=== PATIENT | female | born 1975 | race Caucasian/White ===

== ENCOUNTER 2022-01-23 18:03 | Emergency (ER) | payer OTHER, MEDICARE, MEDICAID ==
[2022-01-23] MEDS ORDERED: Lidocaine 4% Cream 5 GM TUBE w/ Tegaderm ONE (18:46)
== END 2022-01-23 19:45 | disposition home or self-care (01) ==
LOC: BURERS 18:03
DX: S50.01XA Contusion of right elbow, initial encounter (principal); S60.211A Contusion of right wrist, initial encounter; S20.419A Abrasion of unspecified back wall of thorax, initial encounter; E11.9 Type 2 diabetes mellitus without complications; E78.5 Hyperlipidemia, unspecified; E78.00 Pure hypercholesterolemia, unspecified; M19.90 Unspecified osteoarthritis, unspecified site; G47.30 Sleep apnea, unspecified; I10 Essential (primary) hypertension; Z79.899 Other long term (current) drug therapy; Y09 Assault by unspecified means

== ENCOUNTER 2024-12-26 09:25 | Emergency (ER) | payer MEDICARE, OTHER ==
[2024-12-26] MEDS ORDERED: HYDROcodone/Acetaminophen 5/325 mg Tablet ONE (09:49)
[2024-12-26] MEDS ORDERED: Morphine 4 MG/ML VIAL ONE ×3 (09:51→12:41)
[2024-12-26] MEDS ORDERED: Morphine 2 MG/ML VIAL ONE (09:51)
[2024-12-26] MEDS ORDERED: Ketamine 50 MG/ML (10ML VIAL) ONE (10:48)
[2024-12-26] MEDS ORDERED: Iopamidol 370 76% 100 ML VIAL ONE (12:15)
[2024-12-26 13:53] LABS: #Basophils 0.1 thou/uL (0.0-0.2); #Eosinophils 0.2 thou/uL (0.0-0.7); #Lymphocytes 1.3 thou/uL (1.20-3.40); #Monocytes 0.4 thou/uL (0.11-0.59); #Neutrophils 4.4 thou/uL (1.40-6.50); %Basophils 1.2 % (0.0-1.0); %Eosinophils 3.8 % (0.0-10.0); %Lymphocytes 20.8 % (21.0-51.0); %Monocytes 5.6 % (0.0-10.0); %Neutrophils 68.7 % (42.0-75.0); Hematocrit 39.4 % (36.0-47.0); Hemoglobin 12.7 g/dL (12.0-16.0); Mean Corpuscular HGB CONC 32.3 g/dL (32.0-36.0); Mean Corpuscular Hemoglobin 29.3 pg (27.0-31.0); Mean Corpuscular Volume 90.6 fl (78.0-98.0); Mean Platelet Volume 7.9 fL (7.4-10.4); Platelet Count 205 10x3/uL (130-400); Red Blood Cell (RBC) Count 4.34 mill/uL (4.20-5.40); White Blood Cell (WBC) Count 6.4 10x3/uL (4.8-10.8)
[2024-12-26 14:06] LABS: Prothrombin Time 13.1 sec (12.0-14.7)
[2024-12-26 14:07] LABS: PTT 30.9 sec (22.9-36.1)
[2024-12-26 14:10] LABS: ALT (SGPT) 38 U/L (Less than 34); AST (SGOT) 50 U/L (11-34); Albumin 3.7 g/dL (3.1-4.5); Alkaline Phosphatase 72 U/L (40-110); Anion Gap 13 mmol/L (10-20); BHCG - Serum Negative (NEGATIVE); BUN (Urea Nitrogen) 8 mg/dL (7.0-18.7); Bilirubin, Total 0.3 mg/dL (0.3-1.2); Calc. Creatinine Clearance 0 mL/min (70-130); Carbon Dioxide 29 mmol/L (22-29); Chloride 108 mmol/L (98-107); Estimated GFR 85; Globulin 2.4 g/dL (2.4-3.5); Glucose 100 mg/dL (70-105); Potassium 4.3 mmol/L (3.5-5.1); Pregs Control Background? CLEAR/WHITE (CLR/WHITE); Pregs Control Bar Appear? YES (CONTROL BAR); Protein, Total 6.1 g/dL (6.0-8.3); Sodium 146 mmol/L (136-145)
[2024-12-26] MEDS ORDERED: Orphenadrine Citrate 60 MG/2 ML VIAL ONE (14:17)
[2024-12-26] MEDS ORDERED: Ketorolac Tromethamine 30 MG (1 mL) VIAL ONE (14:17)
[2024-12-26] MEDS ORDERED: HYDROmorphone 0.5 MG/0.5 ML SYRINGE ONE (16:56)
[2024-12-26] MEDS ORDERED: Ondansetron PF 4 MG/2 ML Vial ONE (16:56)
== END 2024-12-26 18:55 | disposition short-term general hospital (02) ==
LOC: BURERS 09:25
DX: S82.852A Displaced trimalleolar fracture of left lower leg, initial encounter for closed fracture (principal); I10 Essential (primary) hypertension; G43.909 Migraine, unspecified, not intractable, without status migrainosus; W10.9XXA Fall (on) (from) unspecified stairs and steps, initial encounter; Z87.891 Personal history of nicotine dependence; Z79.899 Other long term (current) drug therapy
CPT/HCPCS: 73590; 73610; 73706; 80053; 84703; 85025; 85610; 85730; J1171; J1885; J2270; J2272; J2360; J2405; Q9967; 27818; 36415; 96374; 96375; 96376; 99152; 99153